=== PATIENT | male | born 1995 | race Caucasian/White ===

== ENCOUNTER 2019-02-23 23:13 | Emergency (ER) | payer OTHER ==
--- NOTE | 2019-02-23 23:59 | EDPHY ---
H & P Stated Complaint: L elbow pain after fall today Time Seen by Provider: 02/23/19 23:20 HPI/ROS: 24 yo M states he stumbled and hit his left elbow, denies falling on outstretched hand, pain with extending elbow. Pain at elbow, forearm and at elbow with wrist movement. No prior hx of elbow injury Review of systems General no fever no chills no weakness HEENT no eye pain no eye discharge. No eye redness, no sore throat Respiratory no cough, no shortness of breath Cardiac no chest pain, no peripheral edema GI no abdominal pain, no diarrhea, no constipation, no nausea, no vomiting no flank pain, no hematuria, no dysuria Musculoskeletal no myalgias, pos joint pain Heme no easy bruising, no easy bleeding Endo no polyuria, no polydipsia Skin no rashes, no pruritus Neuro no syncope, no dizziness, no headaches Psych is no suicidal ideation, no homicidal ideation Source: Patient Exam Limitations: No limitations - Personal History Current Tetanus Diphtheria and Acellular Pertussis (TDAP): Yes Tetanus Vaccine Date: Within 10 years - Medical/Surgical History Hx Asthma: No Hx Chronic Respiratory Disease: No Hx Diabetes: No Hx Cardiac Disease: No Hx Renal Disease: No Hx Cirrhosis: No Hx Alcoholism: No Hx HIV/AIDS: No Hx Splenectomy or Spleen Trauma: No Other PMH: ADHD - Family History Significant Family History: No pertinent family hx - Social History Smoking Status: Never smoked Alcohol Use: None Drug Use: None - Physical Exam Exam: 22-year-old male alert and oriented no acute distress nontoxic appearance, afebrile Atraumatic normocephalic Neck no JVD Lungs clear to auscultation, no respiratory distress Heart regular rate and rhythm Extremities no cyanosis clubbing edema Except left elbow-good distal pulses both radial and ulnar, good capillary refill in digits, mild diffuse elbow swelling, full range of motion however pain elicited with extension as well as pronation or supination of the wrist. No olecranon tenderness, positive radial head tenderness No obvious swelling of forearm no gross deformity forearm compartment soft Constitutional: Initial Vital Signs Temperature (C) 37.2 C 02/23/19 23:16 Heart Rate 108 H 02/23/19 23:16 Respiratory Rate 16 02/23/19 23:16 Blood Pressure 134/77 H 02/23/19 23:16 O2 Sat (%) 98 02/23/19 23:16 O2 Delivery Mode Room Air Allergies/Adverse Reactions: No Known Allergies Allergy (Verified 02/23/19 23:16) Home Medications: Medication Instructions Recorded Adderall 10 MG (*) 02/23/19 Medical Decision Making ED Course/Re-evaluation: Patient seen and evaluated for left elbow injury Preliminary reading of x-ray positive anterior fat pad possible radial head fracture Final reading pending Impression Nondisplaced radial head fracture Plan Sling times 24-48 hr, acetaminophen, ibuprofen, ice Follow-up with Orthopedics Differential Diagnosis: Differential diagnosis considered but not limited to: Elbow dislocation, radial head fracture, olecranon fracture, radial or ulnar fracture, elbow sprain, elbow contusion Departure - Departure Disposition: Home, Routine, Self-Care Clinical Impression: Fracture of radial head, left, closed Condition: Good Instructions: Elbow Fracture (ED) Additional Instructions: Generally for this type of fracture of the elbow (radial head) , we recommend ice, rest , elevation for 24-48 hours. After that it will be important to follow up with orthopedics who will likely then recommend daily range of motion exercises. You may take acetaminophen or ibuprofen as needed for pain. Referrals: Patient,NotPresent [Primary Care Provider] - As per Instructions Brandin Martinez MD [Medical Doctor] - As per Instructions [facility] [Provider Group] - As per Instructions
[2019-02-24 00:16] VITALS: BP 122/72
== END 2019-02-24 00:18 | disposition home or self-care (01) ==
LOC: CED 23:13
DX: S52.122A Displaced fracture of head of left radius, initial encounter for closed fracture (principal); W22.8XXA Striking against or struck by other objects, initial encounter
CPT/HCPCS: 73080-PO; 99283-ER; A4565-ER; L3807-ER